=== PATIENT | female | born 1960 | race Caucasian/White ===

== ENCOUNTER → 2016-12-02 | Outpatient (CLI) | payer OTHER ==
--- NOTE | 2016-12-02 10:16 | MM ---
Reason for exam: history of breast cancer, conservation therapy. Last mammogram was performed 1 year ago. History: Patient is postmenopausal, has history of breast cancer at age 44, and is nulliparous. Family history of breast cancer in sister at age 50 and premenopausal breast cancer in mother at age 50. Benign MG stereo VAD BX LT of the left breast, December 04, 2014. Excisional biopsy of the left breast, December 23, 2010. Lumpectomy of the left breast, December 23, 2010. Core biopsy of the left breast, January 11, 2007. Lumpectomy of the right breast, August 2005. Lumpectomy of the right breast, June 2005. Radiation therapy of the right breast, 2004. Benign excisional biopsy of the right breast, December 1997. Radiation therapy. Took hormonal contraceptives for 20 years. Physical Findings: Nurse did not find any significant physical abnormalities on exam. MG 3D Diag Mammo W/Cad FRANCES Bilateral CC and MLO view(s) were taken. Prior study comparison: November 20, 2015, bilateral MG 3d diag mammo w/cad FRANCES. November 19, 2014, bilateral MG diagnostic mammo w CAD FRANCES. The breast tissue is heterogeneously dense. This may lower the sensitivity of mammography. Previous mammotome biopsy in the left breast. Lumpectomy on right breast. No significant new findings when compared with previous films. These results were verbally communicated with the patient and result sheet given to the patient on 12/02/16. ASSESSMENT: Benign, BI-RAD 2 RECOMMENDATION: Follow-up diagnostic mammogram of both breasts in 1 year.
== END | disposition home or self-care (01) ==
LOC: RADMAMWWP 08:59
PROVIDERS: ATTEND Family Medicine
DX: C50.919 Malignant neoplasm of unspecified site of unspecified female breast (principal); E03.9 Hypothyroidism, unspecified; L21.9 Seborrheic dermatitis, unspecified; M54.2 Cervicalgia; R53.83 Other fatigue
CPT/HCPCS: G0204; G0279

== ENCOUNTER → 2020-01-02 | Outpatient (CLI) | payer OTHER ==
--- NOTE | 2020-01-02 12:42 | XR ---
EXAMINATION TYPE: XR shoulder complete RT DATE OF EXAM: 01/02/2020 CLINICAL HISTORY: Acute on chronic right shoulder pain TECHNIQUE: Two views of the right shoulder are obtained. COMPARISON: None. FINDINGS: There is no acute fracture/dislocation evident in the right shoulder. The acromioclavicul ar and glenohumeral joint spaces appear within normal limits. The visualized ribs are intact and unr emarkable. IMPRESSION: There is no acute fracture or dislocation in the right shoulder.
--- NOTE | 2020-01-02 12:44 | XR ---
EXAMINATION TYPE: XR wrist complete RT, XR hand complete RT DATE OF EXAM: 01/02/2020 CLINICAL HISTORY: Chronic right wrist pain TECHNIQUE: Frontal and lateral images of the right hand and wrist are obtained. COMPARISON: None FINDINGS: There is no acute fracture/dislocation evident in the right wrist. The joint spaces in th e right wrist appear aligned. Minimal arthropathy of the first carpometacarpal joint with bony prolif erative change and joint space narrowing. Similar findings are seen of the proximal interphalangeal j oints of the second through fourth digits. Findings a lesser degree are seen of the second and third distal interphalangeal joints. The overlying soft tissue appears unremarkable. IMPRESSION: There is no acute fracture or dislocation in the right wrist nor hand. Mild arthropathy of the first carpometacarpal joint, second through fourth proximal interphalangeal joints and second through third distal interphalangeal joints. Distribution favors osteoarthropathy.
--- NOTE | 2020-01-02 12:51 | XR ---
EXAMINATION TYPE: XR cervical spine comp DATE OF EXAM: 01/02/2020 TECHNIQUE: Frontal, lateral, oblique, swimmers, and open mouth view of the cervical spine are justine d. HISTORY: M54.2 M25.531 M79.64 COMPARISON: None FINDINGS: There is straightening of usual cervical lordosis. The cervical spine is visualized in its entirety from C1 thru the top of T1 level, it is satisfactory in and vertebral body heights without evidence of acute fracture or dislocation. There is grade 1 anterolisthesis of C3 on C4. Small multil evel anterior osteophytes are seen. Mild multilevel uncovertebral hypertrophy. The pre-vertebral soft tissue appears within normal limits. The C1-C2 articulation is within normal limits on the open angelina th view. The oblique images are within normal limits. IMPRESSION: 1. No acute fracture is seen in the cervical spine. 2. Mild multilevel degenerative disc disease of the cervical spine and grade 1 anterolisthesis of C3 on C4 that is likely on a degenerative basis. 3. Straightening of usual cervical lordosis may be on the basis of muscular strain/spasm or patient p ositioning.
== END | disposition home or self-care (01) ==
LOC: RADXRMAIN 11:21
PROVIDERS: ATTEND Family Medicine
DX: M50.31 Other cervical disc degeneration, high cervical region (principal); M12.831 Other specific arthropathies, not elsewhere classified, right wrist; M12.841 Other specific arthropathies, not elsewhere classified, right hand; M25.511 Pain in right shoulder
CPT/HCPCS: 72050

== ENCOUNTER → 2020-05-14 | Outpatient (CLI) | payer OTHER ==
--- NOTE | 2020-05-14 15:46 | US ---
EXAMINATION TYPE: US groin LT DATE OF EXAM: 05/14/2020 COMPARISON: NONE CLINICAL HISTORY: R10.2 Pelvic and perineal pain. Left groin pain. Left Groin US: multiple lymph nodes are seen here at patient's area of pain with largest = 2.7 x 1. 4 x 0.5cm. IMPRESSION: 1. Left groin adenopathy.
== END | disposition home or self-care (01) ==
LOC: RADUSWWP 14:53
PROVIDERS: ATTEND Family Medicine
DX: R59.0 Localized enlarged lymph nodes (principal)

== ENCOUNTER 2020-06-11 12:30 | Day surgery (SDC) | payer OTHER ==
[2020-06-11 13:23] VITALS: BP 132/68; PULSE 90; RESP 16; TEMP 98.7
--- NOTE | 2020-06-11 16:11 | US ---
Discontinued fine-needle aspiration HISTORY: Lymphadenopathy Real-time ultrasound performed in the left groin. Normal-appearing nodes are identified. No evident a denopathy. impression: Exam is aborted following discussion with the patient, normal-appearing nodes are present , follow-up as indicated.
== END 2020-06-11 13:25 | disposition home or self-care (01) ==
LOC: RADPROMAIN 12:30
PROVIDERS: ATTEND Family Medicine
DX: R59.0 Localized enlarged lymph nodes (principal)
CPT/HCPCS: 76536